=== PATIENT | male | born 1980 | race Two or more races ===

== ENCOUNTER 2024-08-18 19:54 | Emergency (ER) | payer MEDICAID, SELFPAY ==
[2024-08-18 20:28] VITALS: BP 209/108; BP 212/111; PULSE 84; RESP 20; TEMP 36.9; O2SAT 100
--- NOTE | 2024-08-18 20:34 | PD.EDRME ---
Rapid Medical Screening Exam [facility] Arrival date/time: 08/18/24 19:54 44-year-old male with past medical history of kidney disease presents emergency department complaining of nausea vomiting and abdominal pain that started this morning. Chief Complaint: Flu Like Symptoms Time Seen by Provider: 08/18/24 20:32 Vital signs: Vital Signs Temperature 98.4 F 08/18/24 20:28 Pulse Rate 84 08/18/24 20:28 Respiratory Rate 20 08/18/24 20:28 Blood Pressure 209/108 H 08/18/24 20:28 Pulse Oximetry (%) 100 08/18/24 20:28 Oxygen Delivery Method Room Air 08/18/24 20:28 Vital signs reviewed by provider: Yes
[2024-08-18] MEDS: METOCLOPRAMIDE INJ 5 MG/ML VIAL 2 ML 10 MG IM (20:49)
[2024-08-18 21:09] LABS: Basophils % (Auto) 0 % (0-2.5); Eosinophils # (Auto) 0.1 Thou/mm3 (0.0-0.5); Eosinophils % (Auto) 1 % (0-10); Hematocrit 36.8 % (41.0-53.0); Hemoglobin 12.8 g/dL (13.5-16.0); Immature Granulocytes % (Auto) 0 % (0-0); Immature Granulocytes Auto 0.04 Thou/mm3 (0.00-0.00); Lymphocytes # (Auto) 1.1 Thou/mm3 (1.0-4.8); Lymphocytes % (Auto) 8 % (10-50); Mean Corpuscular HGB Conc 34.8 g/dl (31.0-37.0); Mean Corpuscular Hemoglobin 29.7 pg (25.0-35.0); Mean Corpuscular Volume 85 fL (80-100); Monocytes # (Auto) 0.4 Thou/mm3 (0.0-0.8); Monocytes % (Auto) 3 % (0-12); Neutrophils # (Auto) 11.4 Thou/mm3 (1.8-7.7); Neutrophils % (Auto) 87 % (37-80); Nucleated Red Blood Cell % 0 /100 WBC (0); Platelet Count 316 Thou/mm3 (140-440); RDW Standard Deviation 38.5 fL (35.1-43.9); Red Blood Count 4.31 Miln/mm3 (4.50-5.90); White Blood Count 13.1 Thou/mm3 (3.8-10.6)
[2024-08-18 21:32] LABS: Sodium 136 mMol/L (136-145)
[2024-08-18 21:33] LABS: Alanine Aminotransferase 20 U/L (10-49); Albumin, Serum 4.7 gm/dL (3.5-5.0); Albumin/Globulin Ratio 1.7 (1.2-2.2); Alkaline Phosphatase 149 U/L (46-116); Anion Gap 10 (7-16); Aspartate Amino Transferase 10 U/L (0-34); BUN/Creatinine Ratio 19 Ratio (12-20); Bilirubin,Total 0.5 mg/dL (0.3-1.2); Blood Urea Nitrogen 34 mg/dL (9-23); Calcium 10.5 mg/dL (8.3-10.6); Calcium (Corrected) 10.5 mg/dL (8.5-10.1); Chloride 103 mMol/L (98-107); Creatinine (Component) 1.8 mg/dL (0.6-1.3); Globulin 2.8 gm/dL (2.3-3.5); Glucose 269 mg/dL (74-106); Lipase 59 U/L (12-53); Osmolality,Calculated 288 (275-295); Potassium 4.8 mMol/L (3.4-5.1); Total Protein 7.5 gm/dL (5.7-8.2); eGFR 47 See Note
[2024-08-18] MEDS: HALOPERIDOL LACT INJ 5 MG/ML VIAL IM (22:23)
--- NOTE | 2024-08-19 00:30 | PC.NURSE ---
PT WANTED TO LEFT AMA, PT STATED HE FELT BETTER AND DID NOT WANT TO WAIT FOR RESULTS. PT ASKED TO WAIT FOR AMA FORM TO BE GIVEN BUT DID NOT WAIT TO SIGN. PT ELOPED.
== END 2024-08-19 00:31 | disposition left against medical advice (07) ==
PROVIDERS: Emergency Provider Emergency Medicine
DX: R11.2 Nausea with vomiting, unspecified (principal); R10.9 Unspecified abdominal pain; Z53.29 Procedure and treatment not carried out because of patient's decision for other reasons
CPT/HCPCS: 36415; 80053; 80307; 81001; 83690; 85025; 96372; 99283; J1630; J2765

== ENCOUNTER → 2025-01-27 | Outpatient (CLI) | payer MEDICAID, SELFPAY ==
--- NOTE | 2025-01-27 14:40 | XR_ITS ---
Examination: Foot, right, 3 views Technique: AP, oblique, lateral views foot, 3 views Date and time of exam: January 27, 2025 1441 hours INDICATIONS: Foot pain months FINDINGS: Moderate osteoarthritis interphalangeal joint first digit No fracture No cortical bone destruction Mild osteoarthritis talonavicular joint and tibiotalar joint IMPRESSION: Osteoarthritis as above
== END | disposition home or self-care (01) ==
LOC: CDIM 14:34
PROVIDERS: PCP Podiatrist; Referring Provider Podiatrist; Visit Provider Podiatrist
DX: M19.071 Primary osteoarthritis, right ankle and foot (principal)
CPT/HCPCS: 73630

== ENCOUNTER → 2025-02-25 | Outpatient (CLI) | payer MEDICAID, SELFPAY | END | disposition home or self-care (01) | PROVIDERS: PCP Podiatrist; Referring Provider Podiatrist; Visit Provider Student in an Organized Health Care Education/Training Program | DX: E11.621 Type 2 diabetes mellitus with foot ulcer (principal); L97.512 Non-pressure chronic ulcer of other part of right foot with fat layer exposed; I10 Essential (primary) hypertension; N18.9 Chronic kidney disease, unspecified; E11.40 Type 2 diabetes mellitus with diabetic neuropathy, unspecified; M19.071 Primary osteoarthritis, right ankle and foot; E66.9 Obesity, unspecified | CPT/HCPCS: 11042; 99213; A9270; G0463 ==

== ENCOUNTER → 2025-05-30 | Outpatient (CLI) | payer MEDICAID, SELFPAY ==
--- NOTE | 2025-05-30 15:34 | XR_ITS ---
Examination: Left elbow 3 views Technique: Elbow AP, oblique, lateral 3 views Exam date and time: May 30, 2025, 1538 hours INDICATIONS: Left elbow pain beginning one month ago. FINDINGS: No fracture or dislocation. No elbow effusion IMPRESSION: No fracture or arthritic change.
== END | disposition home or self-care (01) ==
LOC: CDIM 15:19
DX: M25.522 Pain in left elbow (principal)
CPT/HCPCS: 73080

== ENCOUNTER 2025-08-18 13:30 | Outpatient (RCR) | payer MEDICAID, SELFPAY ==
--- NOTE | 2025-08-12 13:03 | PT.OIERPT ---
PT OP Initial Eval Patient Information Outpatient Physical Therapy Treatment Date: 08/12/25 Visit Reasons: left elbow pain Medical Diagnosis: Left Elbow Pain Treatment Dx #1: Left Elbow Pain Treatment Dx #2: Tennis Elbow Start of Care: 08/12/25 Date of Onset: 6 months ago Smoking Status Smoking Status: Never smoker Initial Assessment Subjective: Pt is a 45 y/o male reports of chronic left elbow pain (4/10) worsening in the past 6 months. Pt used to play tennis and started ~ 2 months ago. Pt denies of injury or trauma to the elbow. 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
--- NOTE | 2025-08-18 13:58 | PT.ODAYNRPT ---
PT Outpatient Daily Note OP Daily Note Outpatient Physical Therapy Treatment Date: 08/18/25 Visit Reasons: left elbow pain Subjective: Pt reports L elbow pain is pretty consistent notices he has difficult time picking up weighted objects. Objective: Please see flow sheet for ther ex list. Assessment: Interventions completed with minimal pain, applied cold pack at end of session. Plan: Continue with poC. Length of Time (minutes) of Treatment: 30 Minutes Procedure Charges Therapeutic Exercise 30 minutes: Yes
== END 2025-08-27 23:59 | disposition home or self-care (01) ==
LOC: CPTX 13:30
DX: M25.522 Pain in left elbow (principal); R53.1 Weakness; G89.29 Other chronic pain
CPT/HCPCS: 97110; 97162